=== PATIENT | female | born 1975 | race Hispanic/Latino ===

== ENCOUNTER 2019-03-01 18:50 | Emergency (ER) | payer MEDICAID, OTHER | END 2019-03-01 19:48 | disposition home or self-care (01) | LOC: EDH 18:50 | DX: B00.9 Herpesviral infection, unspecified (principal); L08.9 Local infection of the skin and subcutaneous tissue, unspecified; R59.1 Generalized enlarged lymph nodes ==

== ENCOUNTER 2020-05-30 16:52 | Observation (INO) | payer OTHER ==
[~2020-05-30] VITALS: Ht 154.9 cm; Wt 70.3 kg
[2020-05-30 17:29] LABS: BASOPHILS % (AUTO) 0.4 % (0.0-5.0); EOSINOPHILS % (AUTO) 1.5 % (0.0-8.0); HEMATOCRIT 21.4 % (36-48); LYMPHOCYTES % (AUTO) 30.5 % (21.0-51.0); MEAN CORPUSCULAR HEMOGLOBIN 20.8 pg (27.0-33.0); MEAN CORPUSCULAR VOLUME 71.8 fL (79-99); MONOCYTES % (AUTO) 7.8 % (3.0-13.0); NEUTROPHILS % (AUTO) 59.4 % (40.0-77.0); PLATELET COUNT (AUTO) 361 K/uL (130-400); RED BLOOD CELL COUNT(AUTO) 2.98 MIL/uL (4.00-5.50); RED CELL DISTRIBUTION WIDTH 15.7 % (11.0-15.5); WHITE BLOOD COUNT (AUTO) 7.9 K/uL (4.8-10.8)
[2020-05-30 18:42] LABS: INR 0.97 (0.85-1.15); PARTIAL THROMBOPLASTIN TIME 22.7 SEC (26.3-35.5); PROTHROMBIN TIME 10.5 SEC (9.6-11.6)
--- NOTE | 2020-05-30 19:00 | NUR ---
Patient received from ED; Patient came in via wheelchair pale looking ith chief complaints of Vaginal bleeding started today. Patient oriented to the room, call light given plan of care discussed, she verbalizes understanding.
[2020-05-30 19:10] VITALS: BP 122/66
[2020-05-30] MEDS ORDERED: SODIUM CHLORIDE 0.9% 1000ML 1,000 ML IV ONE (19:45)
[2020-05-30] MEDS ORDERED: IBUP-2070 PO (21:24)
[2020-05-30] MEDS ORDERED: ACET-2247 PO (21:24)
[2020-05-30 23:36] VITALS: BP 106/52
[2020-05-31 03:10] VITALS: BP 108/64
[2020-05-31 05:26] LABS: HEMATOCRIT 26.2 % (36-48)
--- NOTE | 2020-05-31 07:00 | NUR ---
Patient discharges; Discharges Instruction given. Informed to follow up with for check up in 1 week. Patient verbalizes understanding. Patient brought to ER exit she rode on their private car and was out of the facility.
== END 2020-05-31 07:00 | disposition home or self-care (01) ==
LOC: EDH 16:52 → EDHIP 16:53 → WSH 19:00
PROVIDERS: ADMIT Obstetrics & Gynecology; ATTEND Obstetrics & Gynecology
DX: D64.9 Anemia, unspecified (principal); N92.1 Excessive and frequent menstruation with irregular cycle
CPT/HCPCS: 36415 ×2; 36430 ×2; 76856; 84702; 85014; 85018; 85025; 85610; 85730; 86850; 86900; 86901; 86922; 99284; G0378 ×8; J7030; P9016 ×2

== ENCOUNTER 2022-10-13 15:47 | Emergency (ER) | payer OTHER ==
[~2022-10-13] VITALS: Ht 157.5 cm; Wt 72.6 kg
[~2022-10-13 15:47] MED LIST: ACET-2247 PO; IBUP-2070 PO
[2022-10-13 15:52] VITALS: BP 122/64
[2022-10-13 16:32] LABS: BASOPHILS % (AUTO) 0.4 % (0.0-5.0); EOSINOPHILS % (AUTO) 1.6 % (0.0-8.0); HEMATOCRIT 27.8 % (36-48); LYMPHOCYTES % (AUTO) 29.3 % (21.0-51.0); MEAN CORPUSCULAR HEMOGLOBIN 21.7 pg (27.0-33.0); MEAN CORPUSCULAR HGB CONC 29.9 g/dL (32.0-36.0); MEAN CORPUSCULAR VOLUME 72.6 fL (79-99); MONOCYTES % (AUTO) 5.2 % (3.0-13.0); NEUTROPHILS % (AUTO) 63.2 % (40.0-77.0); PLATELET COUNT (AUTO) 311 K/uL (130-400); RED BLOOD CELL COUNT(AUTO) 3.83 MIL/uL (4.00-5.50); RED CELL DISTRIBUTION WIDTH 16.9 % (11.0-15.5); WHITE BLOOD COUNT (AUTO) 9.6 K/uL (4.8-10.8)
[2022-10-13 16:41] LABS: APPEARANCE,URINE CLOUDY (CLEAR); BILIRUBIN,URINE NEGATIVE (NEGATIVE); COLOR,URINE LIGHT-BROWN (YELLOW); GLUCOSE, URINE (UA) NEGATIVE (NEGATIVE); KETONES,URINE 10 mg/dL (NEGATIVE); LEUKOCYTE ESTERASE ,URINE NEGATIVE Leu/uL (NEGATIVE); NITRATE,URINE NEGATIVE (NEGATIVE); OCCULT BLOOD,URINE LARGE (NEGATIVE); PROTEIN,URINE 30 mg/dL (NEGATIVE); UROBILINOGEN,URINE 0.2 mg/dL (0.2-1.0)
[2022-10-13 16:41] LABS: CREATININE 0.4 mg/dL (0.5-1.5); POTASSIUM 3.2 mmol/L (3.5-5.1)
[2022-10-13 16:46] LABS: ALBUMIN 3.5 g/dL (3.5-5.0); TOTAL PROTEIN, SERUM 7.5 g/dL (6.0-8.3)
[2022-10-13 16:48] LABS: BACTERIA,URINE RARE /HPF (None Seen); MUCUS,URINE RARE LPF (None Seen); RBC,URINE >100 /HPF (0-1); SQUAMOUS EPITHELIAL CELL,UR FEW /HPF (0-2)
[2022-10-13 16:51] LABS: HCG,QUALITATIVE URINE NEGATIVE (NEGATIVE)
[2022-10-13] MEDS ORDERED: POTASSIUM BICARB/CIT AC 25 MEQ TABLET.EFF PO ONE (17:30)
== END 2022-10-13 17:20 | disposition home or self-care (01) ==
LOC: EDH 15:47
DX: N93.9 Abnormal uterine and vaginal bleeding, unspecified (principal); Z98.890 Other specified postprocedural states
CPT/HCPCS: 36415; 80053; 81001; 81025; 85025; 87088

== ENCOUNTER 2022-12-27 19:17 | Inpatient (IN) | payer OTHER ==
[~2022-12-27] VITALS: Ht 152.4 cm; Wt 73.7 kg
[~2022-12-27 19:17] MED LIST changes: +CEFD300C3 PO; -IBUP-2070 PO
[2022-12-27 20:01] LABS: APPEARANCE,URINE TURBID (CLEAR); BILIRUBIN,URINE NEGATIVE (NEGATIVE); COLOR,URINE RED (YELLOW); GLUCOSE, URINE (UA) NEGATIVE (NEGATIVE); KETONES,URINE 5 mg/dL (NEGATIVE); LEUKOCYTE ESTERASE ,URINE SMALL Leu/uL (NEGATIVE); NITRATE,URINE POSITIVE (NEGATIVE); OCCULT BLOOD,URINE LARGE (NEGATIVE); PROTEIN,URINE >=300 mg/dL (NEGATIVE)
[2022-12-27 20:06] LABS: HCG,QUALITATIVE URINE NEGATIVE (NEGATIVE)
[2022-12-27 20:08] LABS: BACTERIA,URINE Few /HPF (None Seen); MUCUS,URINE Few LPF (None Seen); RBC,URINE TNTC /HPF (0-1); SQUAMOUS EPITHELIAL CELL,UR Few /HPF (0-2)
[2022-12-27 20:09] LABS: BASOPHILS % (AUTO) 0.5 % (0.0-5.0); EOSINOPHILS % (AUTO) 2.9 % (0.0-8.0); HEMATOCRIT 21.5 % (36-48); LYMPHOCYTES % (AUTO) 36.3 % (21.0-51.0); MEAN CORPUSCULAR HEMOGLOBIN 23.3 pg (27.0-33.0); MEAN CORPUSCULAR HGB CONC 30.7 g/dL (32.0-36.0); MONOCYTES % (AUTO) 7.2 % (3.0-13.0); NEUTROPHILS % (AUTO) 52.5 % (40.0-77.0); PLATELET COUNT (AUTO) 77 K/uL (130-400); RED BLOOD CELL COUNT(AUTO) 2.83 MIL/uL (4.00-5.50); RED CELL DISTRIBUTION WIDTH 15.9 % (11.0-15.5); WHITE BLOOD COUNT (AUTO) 7.9 K/uL (4.8-10.8)
[2022-12-27 20:40] LABS: CREATININE 0.5 mg/dL (0.5-1.5); POTASSIUM 3.6 mmol/L (3.5-5.1)
[2022-12-27 20:44] LABS: ALBUMIN 3.2 g/dL (3.5-5.0); TOTAL PROTEIN, SERUM 6.8 g/dL (6.0-8.3)
[2022-12-27] MEDS ORDERED: 0.9%NACL 1000ML 1,000 ML IV ONE (21:30)
[2022-12-27] MEDS ORDERED: IOHEXOL 350 MG/ML 100ML INFUS..BTL IV ONE (21:44)
[2022-12-27] MEDS ORDERED: MORPHINE 2 MG SYG IV PRN (23:30)
[2022-12-27] MEDS ORDERED: ONDANSETRON 4MG INJ IV PRN (23:30)
[2022-12-27] MEDS ORDERED: MORPHINE 4 MG SYG IV PRN (23:30)
[2022-12-27] MEDS: MEDROXYPROGESTERONE ACET 5 MG TAB PO SCH (23:30)
[2022-12-27] MEDS ORDERED: ACETAMINOPHEN 325 MG TAB PO PRN (23:30)
[2022-12-27] MEDS: CEFTRIAXONE 1G VIAL IVP SCH (23:41)
[2022-12-28] VITALS (7 sets, daily range): BP systolic 103–122; BP diastolic 63–72
[2022-12-28 05:00] LABS: BASOPHILS % (AUTO) 0.6 % (0.0-5.0); EOSINOPHILS % (AUTO) 2.8 % (0.0-8.0); HEMATOCRIT 26.7 % (36-48); LYMPHOCYTES % (AUTO) 34.9 % (21.0-51.0); MEAN CORPUSCULAR HEMOGLOBIN 23.9 pg (27.0-33.0); MEAN CORPUSCULAR HGB CONC 30.7 g/dL (32.0-36.0); MEAN CORPUSCULAR VOLUME 77.8 fL (79-99); NEUTROPHILS % (AUTO) 52.3 % (40.0-77.0); PLATELET COUNT (AUTO) 333 K/uL (130-400); RED BLOOD CELL COUNT(AUTO) 3.43 MIL/uL (4.00-5.50); RED CELL DISTRIBUTION WIDTH 16.4 % (11.0-15.5); WHITE BLOOD COUNT (AUTO) 8.2 K/uL (4.8-10.8)
[2022-12-28 05:11] LABS: CREATININE 0.5 mg/dL (0.5-1.5); POTASSIUM 4.3 mmol/L (3.5-5.1)
[2022-12-28] MEDS ORDERED: IBUP200C5 PO (05:20)
[2022-12-28] MEDS ORDERED: FLU VACC QS2022-23(6MOS UP)/PF 60 MCG/0.5 ML ML IM ONE (06:30)
[2022-12-28 07:58] LABS: INR 1.01 (0.85-1.15)
[2022-12-28 07:59] LABS: PARTIAL THROMBOPLASTIN TIME 24.9 SEC (26.3-35.5)
[2022-12-28] MEDS: ACETAMINOPHEN 325 MG TAB PO PRN ×2 (08:24→23:01)
[2022-12-28] MEDS: MEDROXYPROGESTERONE ACET 5 MG TAB PO SCH (08:25)
[2022-12-28] MEDS: FAMOTIDINE 20MG TAB PO SCH ×2 (08:25→20:21)
[2022-12-28] MEDS: NORETHINDRONE-ETHINYL ESTRAD 1 TABLET PO SCH (08:25)
[2022-12-28] MEDS: FOLIC ACID 1 MG TABLET PO SCH (09:57)
[2022-12-28] MEDS: CYANOCOBALAMIN (VITAMIN B-12) 100 MCG TABLET PO SCH (09:57)
[2022-12-28 12:54] LABS: % IRON SATURATION 3.8 % (22-44)
[2022-12-28] MEDS ORDERED: COMPOUND IV MISC 1 EACH IVSOLN MISC PRN (13:00)
[2022-12-28] MEDS ORDERED: IRON SUCROSE COMPLEX 300 MG in 0.9% NACL 250ML 250 ML IV SCH (13:00)
[2022-12-28] MEDS: CEFTRIAXONE 1G VIAL IVP SCH (23:00)
[2022-12-29 03:12] VITALS: BP 119/75
[2022-12-29 07:10] VITALS: BP 108/62
[2022-12-29] MEDS ORDERED: FOLI1 PO (07:12)
[2022-12-29] MEDS ORDERED: CYAN100T45 PO (07:12)
[2022-12-29] MEDS ORDERED: MEDR5TAB5 PO (07:56)
[2022-12-29] MEDS: CYANOCOBALAMIN (VITAMIN B-12) 100 MCG TABLET PO SCH (09:14)
[2022-12-29] MEDS: FOLIC ACID 1 MG TABLET PO SCH (09:14)
[2022-12-29] MEDS: NORETHINDRONE-ETHINYL ESTRAD 1 TABLET PO SCH (09:14)
[2022-12-29] MEDS: MEDROXYPROGESTERONE ACET 5 MG TAB PO SCH (09:14)
[2022-12-29] MEDS: FAMOTIDINE 20MG TAB PO SCH (09:14)
== END 2022-12-29 10:10 | disposition home or self-care (01) | DRG 760 ==
LOC: EDH 19:17 → EDHIP 19:18 → 4CH 23:56 → WSH 12-28 04:53
PROVIDERS: ADMIT Internal Medicine; ATTEND Internal Medicine
PROC: 30233N1 Transfusion of Nonautologous Red Blood Cells into Peripheral Vein, Percutaneous Approach (ICD-10-PCS; principal; 2022-12-27)
PROC: 3E02340 Introduction of Influenza Vaccine into Muscle, Percutaneous Approach (ICD-10-PCS; 2022-12-28)
DX: N92.0 Excessive and frequent menstruation with regular cycle (principal); N39.0 Urinary tract infection, site not specified; D50.0 Iron deficiency anemia secondary to blood loss (chronic); E66.9 Obesity, unspecified; Z68.31 Body mass index [BMI] 31.0-31.9, adult; Z85.850 Personal history of malignant neoplasm of thyroid; Z98.891 History of uterine scar from previous surgery; Z23 Encounter for immunization
CPT/HCPCS: 36415; 36430; 74177; 76856; 80048; 80053; 81001; 81025; 82728; 83540; 83550; 85025; 85610; 85730; 86850; 86900; 86901; 86923; 87088; 99291; G0378; J0696; J1756; J7030; J7050; P9016; Q2035; Q9967

== ENCOUNTER 2024-06-07 16:25 | Emergency (ER) | payer BC ==
[~2024-06-07] VITALS: Ht 152.4 cm; Wt 77.1 kg
[~2024-06-07 16:25] MED LIST changes: -ACET-2247 PO; -CEFD300C3 PO; +CYAN100T45 PO; +DEXA4TAB PO; +FOLI1 PO; +MEDR5TAB5 PO
[2024-06-07 18:30] LABS: INFLUENZA TYPE A Negative For Type A (NEGATIVE); INFLUENZA TYPE B Negative For Type B (NEGATIVE)
[2024-06-07] MEDS: ACETAMINOPHEN 500 MG TABLET PO ONE (18:33)
[2024-06-07 18:34] LABS: COVID19 (SARS ANTIGEN RAPID) POSITIVE FOR SARS AG (NEGATIVE); RAPID GROUP A STREP positive (NEGATIVE)
[2024-06-07] MEDS ORDERED: ALBUHFA IH (18:40)
[2024-06-07] MEDS ORDERED: AMOX1TAB16 PO (18:40)
[2024-06-07] MEDS ORDERED: IBUP-2077 PO (18:40)
[2024-06-07 19:16] VITALS: BP 146/75; PULSE 80; RESP 18; O2SAT 98
[2024-06-07] MEDS: AMOX/CLAV 875/125MG TAB PO ONE (19:18)
== END 2024-06-07 19:22 | disposition home or self-care (01) ==
LOC: EDH 16:25
DX: U07.1 COVID-19 (principal); R05.9 Cough, unspecified; J03.00 Acute streptococcal tonsillitis, unspecified; R50.9 Fever, unspecified; Z79.899 Other long term (current) drug therapy; Z98.890 Other specified postprocedural states
CPT/HCPCS: 87426; 87804; 87880